=== PATIENT | male | born 1975 | race Two or more races ===

== ENCOUNTER 2022-09-04 11:24 | Emergency (ER) | payer OTHER ==
[~2022-09-04] VITALS: Ht 167.6 cm; Wt 113.6 kg
[2022-09-04] MEDS ORDERED: AMLO-258 PO (11:48)
[2022-09-04] MEDS ORDERED: CLON0.1T2 PO (11:48)
[2022-09-04] MEDS ORDERED: LISI-893 PO (11:48)
[2022-09-04] MEDS ORDERED: SODIUM CHLORIDE 0.9% 1,000 ML IV ONE (12:15)
[2022-09-04] MEDS ORDERED: METOCLOPRAMIDE HCL 5 MG/ML 2 ML VIAL IVP ONE (12:15)
[2022-09-04] MEDS ORDERED: DiphenhydrAMINE HCL 50 MG/ML VIAL IVP ONE (12:15)
[2022-09-04] MEDS ORDERED: KETOROLAC TROMETHAMINE 30 MG/ML VIAL IVP ONE (12:15)
[2022-09-04 13:40] VITALS: BP 132/87
== END 2022-09-04 14:38 ==
LOC: EMS 11:24
DX: R51.9 Headache, unspecified (principal); I10 Essential (primary) hypertension
CPT/HCPCS: 99285; 96374; 70450; 96375; 96361; J1200; J1885; J2765; J7030